=== PATIENT | female | born 1975 | race Caucasian/White ===

== ENCOUNTER 2023-01-22 10:10 | Emergency (ER) | payer OTHER ==
[~2023-01-22] VITALS: Ht 170.2 cm; Wt 68.0 kg
[~2023-01-22 10:10] MED LIST: CARI250T PO; IBUP-1953 PO
[2023-01-22 10:15] VITALS: BP 127/78; TEMP 97.9; O2SAT 98
[2023-01-22] MEDS ORDERED: NAPR-1009 PO (11:02)
== END 2023-01-22 11:10 | disposition home or self-care (01) ==
LOC: ER 10:18
DX: M72.9 Fibroblastic disorder, unspecified (principal); Z98.890 Other specified postprocedural states; Z79.899 Other long term (current) drug therapy; Z88.1 Allergy status to other antibiotic agents
CPT/HCPCS: 73650-TC